=== PATIENT | female | born 1985 | race African-American/Black ===

== ENCOUNTER 2021-07-31 22:47 | Emergency (ER) | payer OTHER ==
[~2021-07-31 22:47] MED LIST: LIDOCAINE PATCH REMOVAL MC SCH
[2021-07-31 22:58] VITALS: BP 134/90; PULSE 96; TEMP 98.3; BMI 22.2
[2021-07-31] MEDS ORDERED: LIDOCAINE 5% TOPICAL PATCH TP ONE (23:49)
[2021-07-31] MEDS ORDERED: METHOCARBAMOL 500 MG TABLET PO ONE (23:49)
[2021-07-31] MEDS ORDERED: ACETAMINOPHEN 325 MG TABLET (FP) PO ONE (23:49)
[2021-08-01] MEDS ORDERED: ACETAMINOPHEN 325 MG TABLET (FP) ONE (00:51)
[2021-08-01] MEDS ORDERED: LIDOCAINE 5% TOPICAL PATCH ONE (00:51)
[2021-08-01] MEDS ORDERED: METHOCARBAMOL 500 MG TABLET ONE (00:51)
== END 2021-08-01 01:31 | disposition home or self-care (01) ==
LOC: JER 22:47
DX: Z04.1 Encounter for examination and observation following transport accident (principal); V89.2XXA Person injured in unspecified motor-vehicle accident, traffic, initial encounter; Y92.9 Unspecified place or not applicable
CPT/HCPCS: 99283-25